=== PATIENT | female | born 1990 | race Caucasian/White ===

== ENCOUNTER 2023-04-05 19:08 | Emergency (ER) | payer MEDICAID ==
[~2023-04-05] VITALS: Ht 162.6 cm; Wt 78.0 kg
[2023-04-05 19:30] VITALS: BP_SYST 130; PULSE 86; RESP 20; TEMP 97.4; O2SAT 100
[2023-04-05 20:52] LABS: BASOPHILS % (AUTO) 0.4 % (0.0-2.0); EOSINOPHILS # (AUTO) 0.1 K/uL (0.0-0.4); HEMATOCRIT 38.2 % (36-48); HEMOGLOBIN 12.6 g/dL (12.0-16.0); LYMPHOCYTES # (AUTO) 1.8 K/uL (1.0-5.5); LYMPHOCYTES % (AUTO) 16.2 % (20.5-51.5); MEAN CORPUSCULAR HEMOGLOBIN 27 pg (27-31); MEAN CORPUSCULAR HGB CONC 33 % (32-36); MEAN CORPUSCULAR VOLUME 82 fL (79.0-98.0); MONOCYTES # (AUTO) 0.7 K/uL (0.0-1.0); MONOCYTES % (AUTO) 6.7 % (1.7-9.3); NEUTROPHILS # (AUTO) 8.4 K/uL (1.8-7.7); NEUTROPHILS % (AUTO) 75.7 % (40.0-70.0); PLATELET COUNT (AUTO) 339 K/uL (130-430); RED BLOOD CELL COUNT(AUTO) 4.65 MIL/uL (4.2-6.2); RED CELL DISTRIBUTION WIDTH 17.4 % (9.0-15.0); WHITE BLOOD COUNT (AUTO) 11.2 K/uL (4.8-10.8)
[2023-04-05] MEDS: IBUPROFEN 600 MG TABLET PO ONE (21:00)
[2023-04-05 21:01] LABS: ALANINE AMINOTRANSFERASE 22 U/L (12-78); ALBUMIN 3.6 g/dL (3.4-4.8); ANION GAP 7 (5-15); ASPARTATE AMINOTRANSFERASE 15 U/L (10-37); CALCIUM 8.5 mg/dL (8.4-11.0); CARBON DIOXIDE 29 mmol/L (23-29); CHLORIDE 104 mmol/L (98-107); CREATININE 0.68 mg/dL (0.55-1.30); GFR AFRICAN AMERICAN 131 mL/min (>90); GFR NON AFRICAN-AMERICAN 108 mL/min (>90); GLUCOSE 107 mg/dL (74-106); POTASSIUM 3.7 mmol/L (3.5-5.1); SODIUM SERUM 140 mmol/L (136-145); TOTAL BILIRUBIN 0.1 mg/dL (0.0-1.0); TOTAL PROTEIN, SERUM 8.3 g/dL (6.4-8.3); UREA NITROGEN, BLOOD 11 mg/dL (8-21)
[2023-04-05 21:02] LABS: LIPASE 56 U/L (16-77)
[2023-04-05 21:12] LABS: BILIRUBIN,DIRECT < 0.1 mg/dL (0.0-0.3)
[2023-04-05 21:37] LABS: BILIRUBIN,URINE NEGATIVE (NEGATIVE); BLOOD, URINE 2+ (NEGATIVE); GLUCOSE,URINE NEGATIVE (NEGATIVE); KETONES,URINE NEGATIVE (NEGATIVE); LEUKOCYTE ESTERASE ,URINE 3+ (NEGATIVE); NITRITE, URINE NEGATIVE (NEGATIVE); PROTEIN URINE NEGATIVE (NEGATIVE); UROBILINOGEN,URINE 0.2 (0.2-1.0)
[2023-04-05 21:52] LABS: COLOR,URINE STRAW (YELLOW)
[2023-04-05 21:53] LABS: CLARITY/URINE HAZY (CLEAR)
[2023-04-05] MEDS: ACETAMINOPHEN 500 MG TABLET PO ONE (22:04)
[2023-04-05 22:09] LABS: BACTERIA,URINE FEW /HPF (None Seen); MUCUS,URINE None Seen /LPF (None Seen); RBC,URINE 0-3 /HPF (0-3); WBC,URINE 50-80 /HPF (0-3)
[2023-04-05] MEDS ORDERED: CEPH-548 PO (22:29)
[2023-04-05] MEDS ORDERED: NAPR-690 PO (22:29)
[2023-04-05] MEDS: cefTRIAXone 500 MG in LIDOCAINE 1%, 20 ML MDV 1 ML IM ONE (22:44)
[2023-04-05 22:45] VITALS: BP_SYST 110; PULSE 78; RESP 16; TEMP 97.9; O2SAT 98
== END 2023-04-05 22:45 | disposition home or self-care (01) ==
LOC: SED 19:08
DX: N12 Tubulo-interstitial nephritis, not specified as acute or chronic (principal); R10.30 Lower abdominal pain, unspecified; M54.50 Low back pain, unspecified; R30.0 Dysuria; Z79.899 Other long term (current) drug therapy
CPT/HCPCS: 99283; 80076; 80048; 81001; 83690; 85025; 87086; 36415; 81025; 96372; 81000; 81015; J0696